=== PATIENT | male | born 1990 | race Hispanic/Latino ===

== ENCOUNTER 2018-03-07 01:43 | Emergency (ER) | payer OTHER ==
[2018-03-07] MEDS ORDERED: Sodium Chloride 0.9% 1,000 ML IV STA (02:30)
[2018-03-07 02:48] LABS: BASO % 0.3 % (0.0-2.0); EOS # 0.1 K/uL (0.0-0.7); EOS % 1.2 % (0.0-4.0); HEMOGLOBIN 14.5 g/dL (12.0-18.0); LYMPH % 34.5 % (20.0-40.0); MEAN CELL VOLUME 92.8 fl (80.0-94.0); MEAN CORPUSCULAR HEMOGLOBIN 30.7 pg (27.0-31.0); MEAN PLATELET VOLUME 7.5 fl (7.2-11.7); MONO # 0.5 K/uL (0.0-0.8); MONO % 6.2 % (0.0-10.0); NEUT % 57.8 % (50.0-75.0); NRBC % 0.2 % (0.0-0.0); RBC 4.73 Mil/uL (4.40-5.90); RED CELL DISTRIBUTION WIDTH 13.3 % (11.5-14.5); WHITE BLOOD COUNT 8.6 K/uL (4.8-10.8)
[2018-03-07 02:52] LABS: ACETAMINOPHEN < 10.0 ug/ml (10.0-30.0); SALICYLATE < 1.0 mg/dl
[2018-03-07 02:53] LABS: BLOOD UREA NITROGEN 15 mg/dl (9-20); GFR NON-AFRICAN AMERICAN > 60
[2018-03-07 03:00] VITALS: TEMP 97.9
--- NOTE | 2018-03-07 03:09 | ED PDOC ---
HPI: Psych/Substance Abuse Time Seen by Provider: 03/07/18 01:49 Chief Complaint (Nursing): Substance Abuse Chief Complaint (Provider): Substance Abuse ED Caveat: Acuity of Condition History Per: Patient, EMS History/Exam Limitations: intoxication Modifying Factor(s): Alcohol, Other (Adderall) Additional Complaint(s): 27 y/o male with no significant PMHx was found by EMS unconscious with apparently shallow breathing. Patient was administered 2 mg of Narcan intranasa lly less than 20 minutes prior to arrival and after 3 minutes patient was revived and was alert and talking. Patient does not remember any of this. He admits to drinking alcohol and states that he used at least 90 mg Adderall. Denies any other drug abuse today. Patient is anxious and nervous. His history is limited due to alcohol intoxication. Past Medical History Reviewed: Historical Data, Nursing Documentation, Vital Signs Vital Signs: Last Vital Signs Temp 97.9 F 03/07/18 03:00 Pulse 113 H 03/07/18 02:27 Resp 26 H 03/07/18 02:27 BP 129/95 H 03/07/18 02:27 Pulse Ox 100 03/07/18 02:27 - Family History Family History: States: Unknown Family Hx - Allergies Allergies/Adverse Reactions: Allergies Allergy/AdvReac Type Severity Reaction Status Date / Time Unobtainable Allergy Verified 03/07/18 02:21 Review of Systems Review Of Systems: ROS cannot be obtained secondary to pt's inabilty to answer questions. (alcohol intoxication) Physical Exam - Reviewed Nursing Documentation Reviewed: Yes Vital Signs Reviewed: Yes - Physical Exam Appears: Positive for: Non-toxic, No Acute Distress (intoxicated appearing) Head Exam: Positive for: ATRAUMATIC, NORMOCEPHALIC Skin: Positive for: Normal Color, Warm, Dry Eye Exam: Positive for: Conjunctival injection Cardiovascular/Chest: Positive for: Regular Rate, Rhythm, Tachycardia. Negative for: Murmur Respiratory: Positive for: Normal Breath Sounds. Negative for: Respiratory Distress Gastrointestinal/Abdominal: Positive for: Normal Exam, Soft. Negative for: Tenderness Extremity: Positive for: Normal ROM. Negative for: Pedal Edema, Deformity Neurologic/Psych: Positive for: Alert, Oriented. Negative for: Motor/Sensory Deficits - Laboratory Results Result Diagrams: 03/07/18 02:00 03/07/18 02:00 - ECG O2 Sat by Pulse Oximetry: 100 (RA) Pulse Ox Interpretation: Normal Medical Decision Making Medical Decision Making: Time: 02:29 A/P: 27 y/o male with Polysubstance abuse. Currently patient is awake and alert. Patient denies opiate use today. Currently tachycardic likely secondary to Narcan vs. dehydration vs. alcohol intoxication. Will do blood and urine tests and continue to monitor patient. * EKG * Acetaminophen * Alcohol serum * BMP * Drug screen * Salicylate * CBC w/ diff * IV fluids Time: 0500 Patient with normal vitals, was able to ambulate to the bathroom Will not provide urine sample Time: 620 Patient is awake, alert, well appearing Stable for discharge Scribe Attestation: Documented by David Lopez acting as a scribe for Jesus Manuel Hill MD. Provider Scribe Attestation: All medical record entries made by the Scribe were at my direction and personally dictated by me. I have reviewed the chart and agree that the record accurately reflects my personal performance of the history, physical exam, medical decision making, and the department course for this patient. I have also personally directed, reviewed, and agree with the discharge instructions and disposition. Disposition - Clinical Impression Clinical Impression: Substance abuse, Alcohol abuse - Disposition Referrals: Alcoholics Anonymous [Outside] Disposition: Routine/Home Disposition Time: 06:20 Condition: IMPROVED Instructions: Effects of Alcohol on Your Health, Prescription Drug Misuse Forms: [employer] Int (Nepali)
[2018-03-07 06:21] VITALS: O2SAT 100
[2018-03-07 07:01] VITALS: BP 106/60; PULSE 80; RESP 24
== END 2018-03-07 07:01 | disposition home or self-care (01) ==
LOC: H.ER 01:43
DX: F10.10 Alcohol abuse, uncomplicated (principal); F19.10 Other psychoactive substance abuse, uncomplicated; Y90.8 Blood alcohol level of 240 mg/100 ml or more
CPT/HCPCS: 80048; 80320; 80329; 85025; 96360; 99284; J7030